=== PATIENT | male | born 1945 | race Caucasian/White ===

== ENCOUNTER → 2020-06-11 11:27 | Outpatient (CLI) | payer MEDICARE, MEDICAID, SELFPAY ==
[2020-06-11 13:08] LABS: Coronavirus 19 IgG Antibody Positive (Negative); Coronavirus 19 IgM Antibody Negative (Negative)
== END ==
PROVIDERS: Visit Provider Urology
DX: R32 Unspecified urinary incontinence (principal); Z01.818 Encounter for other preprocedural examination; Z11.52 Encounter for screening for COVID-19
CPT/HCPCS: 36415; 86328

== ENCOUNTER 2020-06-14 10:24 | Day surgery (SDC) | payer MEDICARE, MEDICAID, SELFPAY ==
[2020-06-10 13:51] VITALS: BMI 31.4
[2020-06-14 10:41] VITALS: BP 159/85; PULSE 104; RESP 16; TEMP 36.4; O2SAT 95
[2020-06-14 10:49] LABS: POC Glucose,Bedside 138 (70-110)
[2020-06-14 11:18] VITALS: BP 124/77; PULSE 101; RESP 16; TEMP 36.8; O2SAT 95
--- NOTE | 2020-06-14 13:04 | P.OP_ITS ---
Date of procedure: 06/14/20 Pre-op Diagnosis:: Urinary incontinence Post-op Diagnosis:: Stress urinary incontinence Procedure performed:: Cystourethroscopy Surgeon:: Elmer Zavala MD Anesthesia: local Estimated blood loss (mL): 0 Clinical Note:: Patient is a 74-year-old white male with a history of BPH status post 3 TURPs in the past. His last TURP was a laser TURP by Dr. Hayes in [place] on May 09, 2019. Patient states since that time his urinary leakage has been much worse. He does state mild amount of leakage prior to that procedure but now he is requiring pad use and goes through 5-6 pads per day. He states he leaks mainly with activity and bending over. Does have some urgency at night but can get to the bathroom. Operative findings:: Bladder was within normal limits. There is no evidence of trabeculation, cellules or diverticula. The ureteral orifices in their normal anatomic position. Prostatic urethra showed a nice TUR defect. The external urethral sphincter appears competent without any obvious injury. Operative note:: Patient taken to the operating suite after informed consent was pain. On the stretcher he was prepped and draped in the standard surgical fashion and 2% lidocaine placed into the urethra. Urethra was clamped for 5 minutes and then the clamp removed and the flexible cystoscope introduced into the urethral meatus. The scope passed to the prostatic urethra which showed a well resected prostate. The external urethral sphincter appears competent without evidence of injury. The bladder was entered and examined in a systematic fashion. There is no evidence of mucosal abnormalities, stones, diverticula or trabeculation. The ureteral orifices in their normal anatomic position with clear efflux of urine. Scope then removed. Patient tolerated procedure well. While lying down there is no evidence of any leakage but when the patient raised his head up there was copious leakage from the urethral meatus. He was then asked to void and voided with a good stream. We discussed the findings and symptoms are consistent with stress urinary incontinence. We discussed conservative measures with pseudoephedrine and Kegel exercises. We will see him back in a month. We also discussed surgical measures including artificial urinary sphincter. Condition: stable Disposition: same day Specimens:: None Complications:: None
== END 2020-06-14 11:34 | disposition home or self-care (01) ==
LOC: OUTP 10:26
PROVIDERS: PCP Nurse Practitioner Family; Visit Provider Urology
PROC: (CPT 52000; principal; 2020-06-14 11:30)
DX: Z87.438 Personal history of other diseases of male genital organs (principal); Z86.018 Personal history of other benign neoplasm; E10.9 Type 1 diabetes mellitus without complications; K21.9 Gastro-esophageal reflux disease without esophagitis; E78.5 Hyperlipidemia, unspecified; I10 Essential (primary) hypertension; Z79.899 Other long term (current) drug therapy; Z79.84 Long term (current) use of oral hypoglycemic drugs; N39.3 Stress incontinence (female) (male)
CPT/HCPCS: 52000; 82962

== ENCOUNTER → 2020-08-14 09:47 | Outpatient (CLI) | payer MEDICARE, MEDICAID, SELFPAY | PROVIDERS: Visit Provider Internal Medicine Gastroenterology | DX: Z01.812 Encounter for preprocedural laboratory examination (principal); Z20.822 Contact with and (suspected) exposure to COVID-19; Z12.11 Encounter for screening for malignant neoplasm of colon | CPT/HCPCS: U0003 ==

== ENCOUNTER 2020-08-16 07:42 | Day surgery (SDC) | payer MEDICARE, MEDICAID, SELFPAY ==
[2020-08-16 08:08] VITALS: BP 166/97; PULSE 103; RESP 18; TEMP 36.5; O2SAT 93; BMI 63.8
--- NOTE | 2020-08-16 08:39 | HMH.ANESCL ---
[facility] Anesthesia Checklist - Patient Identification Patient Identification: Arm Band - Structural Data Admitted From: Home Planned Operative Procedure/s: Colonscopy Consent for Planned Operative Procedure(s) Verified: Yes - NPO Status Verified Time NPO: 00:00 - Airway Assessment C-Spine Mobility Assessed: Yes TMJ Mobility Assessed: Yes Dentition: Good Dentition - Neurological Assessment Level of Consciousness: Awake, Alert Hx Seizures: No Numbness or tingling in extremities: No - Anesthesia Plan Anesthesia Risk discussed: Yes Anesthesia Plan: Verified ASA Class: III Anesthesia Type: MAC [facility] History I have reviewed the patient's past medical history: Yes Medical History: Reports:: BPH, Diabetes Mellitus Type 2, Gastroesophageal Reflux Disease(GERD), Hyperlipidemia, Hypertension Denies:: Cancer, Diabetes Mellitus Type 1, Internal Pacemaker, MRSA, Seizures *Have you ever received a pneumonia vaccine?: Yes *Have you received a flu vaccine this season?: Yes Anesthesia experience/problems:: None Laterality Cases: Bilateral: Arthroscopy Knee Other Surgeries: Yes: No Previous Surgery, Colonoscopy. No: Pacemaker Amputation: No - *Social History Last grade of school completed: 7th or 8th Smoking Status: Never smoker Alcohol Intake: never Substance Use Type: denies use *Occupational Status:: retired Housing: house Household Members: significant other *Travel in the last 8 weeks: None Family Hx:: No significant family history
[2020-08-16 09:05] VITALS: O2SAT 97
--- NOTE | 2020-08-16 09:29 | HMH.PROC ---
[facility] Procedure Note Procedure Note:: Colonoscopy Procedure Report: Colonoscopy with cold biopsies and monopolar ablation/coagulation of internal hemorrhoids Endoscopist: Fabiano Mathew II, MD Referring physician: CB Robins Date of Procedure: August 16, 2020 Equipment: Olympus 190 variable stiffness pediatric colonoscope Sedation: MAC sedation Indication: Mr. Iglesias is a 74-year-old gentleman who is here for diagnostic colonoscopy. He recently had some bright red blood per rectum 2 weeks ago with bright red blood dripping into the commode. He has had some constipation. He also states that his hemorrhoids were flaring up at the time. His last colonoscopy was approximately 10 years ago. He reports no abdominal pain, weight loss or family history of colon cancer. Procedure: Prior to the procedure, a history and physical exam was performed, and patient's medications and allergies were reviewed. The risks, benefits and alternatives of the sedation and procedure were discussed with the patient. All questions were answered and informed consent was obtained. The patient was brought to the procedure room. Patient identification and proposed procedure were verified by the physician and the nurse. The patient was placed in a left lateral decubitus position and the scope was passed under direct vision. Throughout the procedure, the patient's blood pressure, pulse, and oxygen saturations were monitored continuously. The colonoscopy was accomplished without difficulty. The patient tolerated the procedure well. Findings: On digital rectal examination there was normal rectal tone. There were no external hemorrhoids. The prostate was moderately firm and asymmetric with increased firmness at the margin. The colonoscope was introduced through the anal canal to the rectum and advanced to the cecum. The ileocecal valve and appendiceal orifice were identified. The scope was advanced a short distance into the ileum which appeared grossly normal. The scope was then withdrawn into the colon. The cecum, ascending and transverse colon and mucosa were grossly normal. There were scattered diverticuli throughout the descending and sigmoid colon (LEFT colon). There was also evidence of diverticular associated colitis in the sigmoid colon with granular erythematous mucosa and loss of vascular pattern. Cold biopsies were obtained from the sigmoid colon. The rectum itself was normal. Upon retroflexion within the rectum there were grade 2 internal hemorrhoids. These hemorrhoids were ablated/coagulated using monopolar ablation to destruction above the pectinate line. The preparation was good throughout with [place] Preparation Score of 8 out of 9. The cecal time was 12 minutes. Impression: 1. Left-sided diverticulosis with evidence of sigmoid diverticular associated colitis 2. Grade 2 internal hemorrhoids status post monopolar ablation/coagulation 3. Prostate firm/asymmetric Plan: I will follow-up the biopsies. The patient will not likely require any further preventive colonoscopy. I am going to recommend a fiber bowel regimen. I will inquire about PSA testing with firm asymmetric prostate.
[2020-08-16 09:31] VITALS: BP 89/62; PULSE 90; RESP 12; TEMP 37.1; O2SAT 91
[2020-08-16 09:41] VITALS: BP 111/67; PULSE 91; RESP 12; O2SAT 93
[2020-08-16 09:51] VITALS: BP 113/71; PULSE 89; RESP 16; O2SAT 95
[2020-08-16 10:01] VITALS: BP 131/73; PULSE 88; RESP 16; TEMP 37.1; O2SAT 94
--- NOTE | 2020-08-16 10:01 | PC.NURSE ---
PSA drawn per lab
[2020-08-16 10:42] LABS: POC Glucose,Bedside 155 (70-110)
== END 2020-08-16 10:14 | disposition home or self-care (01) ==
LOC: OUTP 07:45
PROVIDERS: PCP Nurse Practitioner Family; Visit Provider Internal Medicine Gastroenterology
PROC: 0DJD8ZZ Inspection of Lower Intestinal Tract, Via Natural or Artificial Opening Endoscopic (ICD-10-PCS; CPT 45378; principal; 2020-08-16 09:00)
DX: K57.30 Diverticulosis of large intestine without perforation or abscess without bleeding (principal); K52.89 Other specified noninfective gastroenteritis and colitis; K64.1 Second degree hemorrhoids; N42.89 Other specified disorders of prostate; E11.9 Type 2 diabetes mellitus without complications; N40.0 Benign prostatic hyperplasia without lower urinary tract symptoms; K21.9 Gastro-esophageal reflux disease without esophagitis; E78.5 Hyperlipidemia, unspecified; I10 Essential (primary) hypertension; Z79.899 Other long term (current) drug therapy
CPT/HCPCS: 45380; 46930; 36415; 82962; 84153; 88305

== ENCOUNTER → 2020-09-22 17:41 | Outpatient (CLI) | payer MEDICARE, MEDICAID, SELFPAY ==
[2020-09-22 18:39] LABS: Basophils # 0.1 K/mm3 (0-0.2); Basophils % 0.9 % (0.1-2.0); Eosinophils # 0.1 K/mm3 (0.0-0.4); Eosinophils % 1.3 % (0.1-12.0); Hematocrit 41.3 % (42.0-52.0); Hemoglobin 14.1 g/dL (14.1-18.0); Lymphocytes # 3.2 K/mm3 (0.7-4.5); Lymphocytes % 38.2 % (10-50); Mean Corpuscular HGB Conc 34.2 g/dL (31.8-35.4); Mean Corpuscular Hemoglobin 29.8 pg (27.0-31.2); Mean Corpuscular Volume 87.2 fl (80-94); Mean Platelet Volume 8.9 fl (7.4-10.4); Monocytes # 0.5 K/mm3 (0.1-1.0); Neutrophils # 4.4 K/mm3 (1.8-7.8); Neutrophils % 53.5 % (37.0-80.0); Platelet Count 280 K/mm3 (142-424); Red Blood Count 4.74 M/mm3 (4.60-6.20); Red Cell Distribution Width 12.9 % (11.5-17.5); White Blood Count 8.3 K/mm3 (4.8-10.8)
[2020-09-22 18:52] LABS: Chloride 93 mmol/L (98-107); Sodium 133 mmol/L (136-145)
[2020-09-22 18:55] LABS: Alanine Aminotransferase 18 U/L (12-78); Albumin Level 4.5 g/dl (3.5-5.0); Albumin/Globulin Ratio 1.9 (1.1-1.8); Alkaline Phosphatase 86 U/L (38-126); Aspartate Amino Transferase 26 U/L (17-59); Bilirubin,Total 0.5 mg/dl (0.2-1.3); Blood Urea Nitrogen 17 mg/dl (9-20); Calcium 9.6 mg/dl (8.4-10.2); Carbon Dioxide 28 mmol/L (22.0-30.0); Estimated Glomerular Filt Rate 73 ml/min (>60); GFR (African American) 88 ML/MIN (>60); Globulin 2.4 g/dL (1.3-3.2); Glucose 349 mg/dl (74-100); Total Protein,Serum 6.9 g/dl (6.3-8.2)
[2020-09-22 21:47] LABS: Hemoglobin A1C 8.8 % (4.0-6.0)
== END ==
PROVIDERS: Visit Provider Internal Medicine Adolescent Medicine
DX: E11.9 Type 2 diabetes mellitus without complications (principal); I10 Essential (primary) hypertension; Z79.84 Long term (current) use of oral hypoglycemic drugs
CPT/HCPCS: 80053; 83036; 85025

== ENCOUNTER → 2020-09-28 10:21 | Outpatient (POV) | payer MEDICARE, MEDICAID, SELFPAY | PROVIDERS: Visit Provider Dermatology | DX: Z00.00 Encounter for general adult medical examination without abnormal findings (principal) ==

== ENCOUNTER 2021-01-20 10:53 | Emergency (ER) | payer MEDICARE, MEDICAID, SELFPAY ==
--- NOTE | 2021-01-20 11:24 | XR_ITS ---
PROCEDURE: XR TIBIA FIBULA LT 2V CLINICAL INDICATION: pallet fell on leg COMPARISON: No exams were available for comparison FINDINGS: No fracture or dislocation. No lytic or blastic change. There is normal mineralization. Status post total knee replacement. Generalized vascular calcification. Other findings:None. IMPRESSION: No acute findings. Dictated by: Carlos Manuel Quinn MD 01/20/2021 12:27 Carlos Manuel Quinn MD in [facility] 01/20/2021 12:27
--- NOTE | 2021-01-20 11:24 | XR_ITS ---
PROCEDURE: XR KNEE LT 3V CLINICAL INDICATION: pallet fell on leg COMPARISON: No exams were available for comparison FINDINGS: Status post total knee replacement. There is good alignment of the prosthesis no obvious orthopedic complication. No fracture or dislocation. Arterial calcification is noted. IMPRESSION: Status post total knee replacement. No acute fracture. Dictated by: Carlos Manuel Quinn MD 01/20/2021 12:26 Carlos Manuel Quinn MD in [facility] 01/20/2021 12:26
[2021-01-20 11:59] VITALS: BP 169/88; PULSE 68; RESP 19; TEMP 37; O2SAT 95; BMI 31.3
[2021-01-20 12:36] VITALS: BP 169/88; PULSE 68; RESP 16; TEMP 37
--- NOTE | 2021-01-20 12:40 | HMH.EDUTC ---
[facility] [place] Disposition Clinical Impression: Need for Tdap vaccination Traumatic hematoma of left lower leg Qualifiers: Encounter type: initial encounter Qualified Code(s): S80.12XA - Contusion of left lower leg, initial encounter Blunt trauma of left lower leg Qualifiers: Encounter type: initial encounter Qualified Code(s): S89.92XA - Unspecified injury of left lower leg, initial encounter Disposition: Home, Self-Care Condition on Discharge: Good Instructions: DI for Hematoma (Bruise), DI for Crush Injury Additional Instructions: Rest the extremity, apply ice for 10 to 20 minutes as tolerated four times per day for the next 2 to 3 days, Elevate the extremity as much time as possible while you are resting. Wear the jorgito wrap loosely for compression, but make absolutely sure it doesn't get tight. You should take it off or rewrap it looser if your leg swells more and it becomes tight at all. Make sure you are doing the ice packs as directed. Anything that can be done to help reduce the swelling should be done. Take tylenol for pain. It would be the safest pain medication for this. If it is not controling your pain, you could take ibuprofen that I prescribed. I sent in a prescription to your pharmacy. If you have worsening pain you need to follow up for reevaluation chely. Follow up with Dr. Chen (orthopedics). I put in a referral but you need to call his office and schedule an appointment. Follow up with your regular doctor tomorrow or a soon as they can see you to recheck your wound. Usually these will begin to reabsorb, but if the swelling continues to worsen or other symptoms start you will need to be seen. The more closely you follow up with your primary care doctor the better. GO TO THE ER FOR ANY WORSENING SYMPTOMS I prescribed bactroban (mupirocin) ointment to help prevent the infection. Make sure you use it as presribed. Watch the site for signs of infection, such as worsening redness, worsening swelling and drainage. Follow up accordingly. Prescriptions: Ibuprofen [Ibuprofen 400mg Tablet] 400 mg PO Q6HP PRN #30 tab PRN Reason: Moderate Pain Transmission Status: Received by PASCALE GRAJEDA 207 Referrals: Provider,Referral, [Primary Care Provider] - Time of Disposition: 13:17 Medical Decision Making - Medical Records Medical records reviewed: No: I reviewed the patient's medical records. - Arian Inquiry Pt receiving controlled substance: No Vital Signs: 01/20/21 11:59 01/20/21 12:36 Temperature 98.6 F 98.6 F Temperature Source Oral Pulse Rate 68 Pulse Rate [Left] 68 Respiratory Rate 19 16 Blood Pressure 169/88 H Blood Pressure [Right Arm] 169/88 H Blood Pressure Mean [Right Arm] 115 02 Sat by Pulse Oximetry 95 - Radiology Data #1 Image(s): Tib/Fib Image Reviewed: Yes I reviewed the patient's radiology image, Yes I have reviewed radiologist's interpretation Preliminary Findings: No Fracture Seen PROCEDURE: XR TIBIA FIBULA LT 2V CLINICAL INDICATION: pallet fell on leg COMPARISON: No exams were available for comparison FINDINGS: No fracture or dislocation. No lytic or blastic change. There is normal mineralization. Status post total knee replacement. Generalized vascular calcification. Other findings:None. IMPRESSION: No acute findings. Dictated by: Carlos Manuel Quinn MD 01/20/2021 12:27 Carlos Manuel Quinn MD in [facility] 01/20/2021 12:27 #2 Image(s): Knee Image Reviewed: Yes I reviewed the patient's radiology image, Yes I have reviewed radiologist's interpretation Preliminary Findings: No Fracture Seen PROCEDURE: XR KNEE LT 3V CLINICAL INDICATION: pallet fell on leg COMPARISON: No exams were available for comparison FINDINGS: Status post total knee replacement. There is good alignment of the prosthesis no obvious orthopedic complication. No fracture or dislocation. Arterial calcification is noted. IMPRESSION: Statu
--- NOTE | 2021-01-20 12:56 | HMH.PHAINT ---
pulled adacel without the order in [facility]. lot [id number] exp 10-21-22 administered in R deltoid
== END 2021-01-20 13:22 | disposition home or self-care (01) ==
PROVIDERS: Emergency Provider Nurse Practitioner Family
DX: S80.12XA Contusion of left lower leg, initial encounter (principal); Z23 Encounter for immunization; W22.8XXA Striking against or struck by other objects, initial encounter; Y92.89 Other specified places as the place of occurrence of the external cause; E11.9 Type 2 diabetes mellitus without complications; K21.9 Gastro-esophageal reflux disease without esophagitis
CPT/HCPCS: G0463; 73562; 73590; 90471; 99202

== ENCOUNTER → 2021-01-28 10:32 | Outpatient (CLI) | payer MEDICARE, MEDICAID, SELFPAY ==
--- NOTE | 2021-01-28 10:51 | CA_ITS ---
APPROVED REPORT Left Lower Extremity Venous Study for DVT. Data Processing Manager: Sharon Navarro, RAMSEST Indications Lower Extremity Pain: Right PALLET FELL ON PT'S LEG 1 WEEK AGO, PT HAS A KNOT PROX GUILLEN Risk Factors Prior Phlebitis/DVT Past History DVT : Vein Imaging CFV (L): compressive, spontaneous, phasic, augmentation FEM (L): compressive, spontaneous, phasic, augmentation POP (L): compressive, spontaneous, phasic, augmentation PTV (L): Compressible GSV (L): Compressible Peroneals (L):Compressible GAS (L): Compressible Findings Study suggests no evidence of DVT or SVT of the left lower extremity. There is a 5.4 X 3.7 cm complex cystic lesion in area of patient's complaint, probable hematoma. Conclusion Study suggests no evidence of DVT or SVT of the left lower extremity. There is a 5.4 X 3.7 cm complex cystic lesion in area of patient's complaint, probable hematoma. Critical Notification Physician Notified Date: 01/28/2021 Time: 11:34 Physician Name: Chayo Haro Electronically signed by : Carlos Manuel Quinn MD 01/28/2021 15:37:36
--- NOTE | 2021-01-28 10:53 | XR_ITS ---
PROCEDURE: XR TIBIA FIBULA LT 2V CLINICAL INDICATION: LT LEG PAIN,LT LEG SWELLING,CELLULITIS COMPARISON: CR XR TIBIA FIBULA LT 2V from 01/20/2021 FINDINGS: Status post total knee arthroplasty with good alignment. No obvious orthopedic complication. Vascular calcification Other findings:No fracture or dislocation. No lytic or blastic change. IMPRESSION: No change with no acute finding Dictated by: Carlos Manuel Quinn MD 01/28/2021 11:18 Carlos Manuel Quinn MD in [facility] 01/28/2021 11:18
[2021-01-28 10:59] LABS: Basophils # 0.1 K/mm3 (0-0.2); Basophils % 1.1 % (0.1-2.0); Eosinophils # 0.2 K/mm3 (0.0-0.4); Eosinophils % 3.3 % (0.1-12.0); Hematocrit 40.8 % (42.0-52.0); Lymphocytes # 2.5 K/mm3 (0.7-4.5); Lymphocytes % 35.4 % (10-50); Mean Corpuscular HGB Conc 31.9 g/dL (31.8-35.4); Mean Corpuscular Hemoglobin 29.9 pg (27.0-31.2); Mean Corpuscular Volume 93.8 fl (80-94); Monocytes # 0.4 K/mm3 (0.1-1.0); Neutrophils # 3.8 K/mm3 (1.8-7.8); Neutrophils % 54.3 % (37.0-80.0); Platelet Count 305 K/mm3 (142-424); Red Blood Count 4.35 M/mm3 (4.60-6.20); Red Cell Distribution Width 13.3 % (11.5-17.5)
[2021-01-28 11:26] LABS: Erythrocyte Sedimentation Rate 5 mm/hr (0-20)
[2021-01-28 11:29] LABS: Chloride 100 mmol/L (98-107)
[2021-01-28 11:30] LABS: Potassium 4.2 mmoL/L (3.5-5.1); Sodium 138 mmol/L (136-145)
[2021-01-28 11:32] LABS: Alanine Aminotransferase 16 U/L (12-78); Alkaline Phosphatase 56 U/L (38-126); Aspartate Amino Transferase 24 U/L (17-59); Bilirubin,Total 0.2 mg/dl (0.2-1.3); Blood Urea Nitrogen 16 mg/dl (9-20); Estimated Glomerular Filt Rate 72 ml/min (>60); GFR (African American) 88 ML/MIN (>60)
[2021-01-28 11:33] LABS: Albumin Level 3.9 g/dl (3.5-5.0); Albumin/Globulin Ratio 1.6 (1.1-1.8); Anion Gap 13.2 mEq/L (5-15); Calcium 9.4 mg/dl (8.4-10.2); Carbon Dioxide 29 mmol/L (22.0-30.0); Globulin 2.4 g/dL (1.3-3.2); Glucose 152 mg/dl (74-100); Total Protein,Serum 6.3 g/dl (6.3-8.2)
[2021-01-28 11:38] LABS: C-Reactive Protein 1.5 mg/L (0-4)
== END ==
PROVIDERS: Visit Provider Nurse Practitioner Family
DX: M79.605 Pain in left leg (principal); M79.89 Other specified soft tissue disorders; L03.116 Cellulitis of left lower limb
CPT/HCPCS: 36415; 73590; 80053; 85025; 85651; 86140; 93971

== ENCOUNTER → 2021-03-28 17:47 | Outpatient (CLI) | payer MEDICARE, MEDICAID, SELFPAY ==
[2021-03-28 21:12] LABS: Hemoglobin A1C 6.6 % (4.0-6.0)
[2021-03-28 21:13] LABS: Alanine Aminotransferase 22 U/L (12-78); Albumin Level 4.2 g/dl (3.5-5.0); Albumin/Globulin Ratio 1.8 (1.1-1.8); Alkaline Phosphatase 64 U/L (38-126); Anion Gap 12.2 mEq/L (5-15); Aspartate Amino Transferase 30 U/L (17-59); Bilirubin,Total 0.2 mg/dl (0.2-1.3); Blood Urea Nitrogen 21 mg/dl (9-20); Calcium 9.9 mg/dl (8.4-10.2); Carbon Dioxide 30 mmol/L (22.0-30.0); Chloride 98 mmol/L (98-107); Estimated Glomerular Filt Rate 65 ml/min (>60); GFR (African American) 79 ML/MIN (>60); Globulin 2.4 g/dL (1.3-3.2); Glucose 210 mg/dl (74-100); Potassium 4.2 mmoL/L (3.5-5.1); Sodium 136 mmol/L (136-145); Total Protein,Serum 6.6 g/dl (6.3-8.2)
== END ==
PROVIDERS: Visit Provider Internal Medicine Adolescent Medicine
DX: E11.9 Type 2 diabetes mellitus without complications (principal); Z79.84 Long term (current) use of oral hypoglycemic drugs
CPT/HCPCS: 80053; 83036

== ENCOUNTER 2024-10-31 15:06 | Outpatient (CLI) | payer MEDICARE, MEDICAID, SELFPAY ==
--- OUTSIDE RECORDS SUMMARY | 2024-10-31 15:09 | XMS_ITS | Data Portability ---
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 PROCEDURE: Implantation of artificial urinary sphincter. SURGEON: Carie Maya Jr., MD ANESTHESIA: General. COMPLICATIONS: None. DISPOSITION: Patient was taken to recovery room in stable condition. OPERATIVE NOTE: Patient gives his full consent. He was brought in to the operating suite, where he was placed in supine position. He was sterilely prepped and draped in normal fashion with 10-minute scrub. Penile scrotal incision is created and we dissected down onto the bulbar urethra and corpora cavernosa. We used a [place] retractor for retraction purposes. We were able to establish access ventral to the bulbar urethra and created a space to pass our sphincter. We measured this area 4 cm. At this point, our sphincter was passed around the urethra without any difficulty and fastened into place. We then identified the external inguinal ring on the right side and created a space posterior to the pubic symphysis through the external inguinal ring for our reservoir. [place] was placed and 23 mL of injectable saline was placed into the reservoir. Finally, we created a subcutaneous pocket on the anterior scrotum for our pump. The pump was positioned appropriately and tubing was connected. Please note that throughout the procedure, a Gallardo catheter was then placed, 14-Serbian. Copious amounts of irrigation were used. The sphincter cycled normally and was deactivated with a good dimple in the pump. At this point, we closed dartos fascia using a 3-0 Vicryl suture and then closed skin using a combination of 3-0 chromic suture in a horizontal mattress running fashion and Dermabond. Sterile dressing was applied. Gallardo catheter was allowed to go to bag drainage, and the patient was taken to the recovery room in stable condition once anesthesia had been reversed. [email or web address] Not available 11/18/2020 02:14:05 Plan of Treatment Reminders Order Date Submit Date Provider Last Modified By Organization Details Last Modified Time Details Appointments None recorded. Lab urinalysis panel, auto 2021 022 [facility], [address] [facility], [facility] [address], [place], [address], 13:32:47 urinalysis panel, auto 2020 021 [facility], [address], [facility], [place], [address], 06:43:46 Referral None recorded. Procedures None recorded. Surgeries None recorded. Imaging None recorded. Medication Orders Myrbetriq 50 mg tablet,ext ended release 2021 [facility] [id number], [address] [place] [address], [address], 13:32:50 Percocet 7.5 mg-325 mg tablet 2020 021 [facility], [address] [place], [address], 16:58:15 Bactrim DS 800 mg-160 mg tablet 2020 021 [email or web address] [facility] [address], [address] [place], [address], 09:04:19 Patient TargetsNo targets recorded. Patient Instructions Encounter Date Encounter Id Patient Instructions Last Modified By Organization Details Last Modified Time 11/18/2020 [id number] patient will follow-up in 4-6 weeks with activation of the device tslabaudiego Not available 11/21/2020 12:45:34 12/30/2020 [id number] learning about healthy weight [email or web address] Not available 01/02/2021 17:57:24 patient understands the manipulation of the artificial urinary sphincter pump tslabaugh Not available 01/02/2021 17:57:02 01/05/2021 [id number] healthy together [email or web address] Not availabl e 01/10/2021 06:43:46 I spent some belia e demonstrating how to cycle the urinary sphincter. We cycled in the office if he had much more comfortable voiding. He states he has not been cycling properly demonstrated that he was able to cycle length today. [email or web address] Not available 01/10/2021 06:44:12 08/15/2021 [id number] healthy together tslabau Not availabl e 08/15/2021 13:32:47 Reason for Referral None Reported. Results Created Date Observation Date Name Description Value Unit Range Abnormal Flag Note LastModifiedBy Organization Detail LastModifiedTime 01/06/2001/05/2021 urina lysis panel , auto Unknown Analyte Clean Catch Not Available [facility] [address], [place], [address], 01/05/2021 09:34:07 01/06/2001/05/2021 urina lysis panel , auto Unknown Analyte Yellow Not Available Replaced by [facility] [place] [address], [place], [address], 01/05/2021 09:34:07 01/06/2001/05/2021 urina lysis panel , auto Unknown Analyte Clear Not Available Replaced by [facility] With [address], [place], [address], 01/05/2021 09:34:07 01/06/20 21 01/05/2021 urina lysis panel , auto Unknown Analyte 1.015 Not Available [facility] With [address], [place], [address], 01/05/2021 09:34:07 01/06/20 21 01/05/2021 urina lysis panel , auto Unknown Analyte 1.003- 1.035 Not Available [facility] With [address], [place], [address], 01/05/2021 09:34:07 01/06/20 21 01/05/2021 urina lysis panel , auto Unknown Analyte 7.0 Not Available [facility] With [address], [place], [address], 01/05/2021 09:34:07 01/06/20 21 01/05/2021 urina lysis panel , auto Unknown Analyte 5.0-8. 0 Not Available [facility] With [address], [place], [address], 01/05/2021 09:34:07 01/06/20 21 01/05/2021 urina lysis panel , auto Unknown Analyte Negati ve Not Available [facility] With [address], [place], [address], 01/05/2021 09:34:07 01/06/20 21 01/05/2021 urina lysis panel , auto Unknown Analyte Negati ve Not Available [facility] With [place] [address], [place], [address], 01/05/2021 09:34:07 01/06/20 21 01/05/2021 urina lysis panel , auto Unknown Analyte Negati ve Not Available [facility] With [address], [place], [address], 01/05/2021 09:34:07 01/06/20 21 01/05/2021 urina lysis panel , auto Unknown Analyte Negati ve Not Available [facility] With [address], [place], [address], 01/05/2021 09:34:07 01/06/20 21 01/05/2021 urina lysis panel , auto Unknown Analyte Negati ve Not Available [facility] With [address], [place], [address], 01/05/2021 09:34:07 01/06/20 21 01/05/2021 urina lysis panel , auto Unknown Analyte Negati ve Not Available [facility] With [address], [place], [address], 01/05/2021 09:34:07 01/06/20 21 01/05/2021 urina lysis panel , auto Unknown Analyte 100 mg/dl Not Available [facility] With [address], [place], [address], 01/05/2021 09:34:07 01/06/20 21 01/05/2021 urina lysis panel , auto Unknown Analyte Normal Not Available [facility] [place] [address], [place], [address], 01/05/2021 09:34:07 01/06/20 21 01/05/2021 urina lysis panel , auto Unknown Analyte Negati ve Not Available [facility] [place] [address], [place], [address], 01/05/2021 09:34:07 01/06/20 21 01/05/2021 urina lysis panel , auto Unknown Analyte Negati ve Not Available [facility] [address], [place], [address], 01/05/2021 09:34:07 01/06/20 21 01/05/2021 urina lysis panel , auto Unknown Analyte Normal Not Available [facility] [place] [address], [place], [address], 01/05/2021 09:34:07 01/06/20 21 01/05/2021 urina lysis panel , auto Unknown Analyte Normal 1 mg/dl Not Available [facility] With [address], [place], [address], 01/05/2021 09:34:07 01/06/20 21 01/05/2021 urina lysis panel , auto Unknown Analyte Negati ve Not Available [facility] With [address], [place], [address], 01/05/2021 09:34:07 01/06/20 21 01/05/2021 urina lysis panel , auto Unknown Analyte Negati ve Not Available [facility] With [address], [place], [address], 01/05/2021 09:34:07 01/06/20 21 01/05/2021 urina lysis panel , auto Unknown Analyte Negati ve Not Available [facility] [place] [address], [place], [address], 01/05/2021 09:34:07 01/06/20 21 01/05/2021 urina lysis panel , auto Unknown Analyte Negati ve Not Available [facility] [place] [address], [place], [address], 01/05/2021 09:34:07 11/16/19 21 11/16/2020 SARS- COV-2 RNA, PCR sars cov2 result NEGATI VE normal Not Available [facility] [address] [place] [address], [address], 11/16/2020 07:50:40 11/18/1911/17/2020 urina lysis panel , auto Unknown Analyte Clean Catch Not Available [facility] Surgery Schedule [address] [place] [address], [address], 11/17/2020 16:27:07 11/18/1911/17/2020 urina lysis panel , auto Unknown Analyte Yellow Not Available [facility] Surgery Schedule [address] [place] [address], [address], 11/17/2020 16:27:07 11/18/19 21 11/17/2020 urina lysis panel , auto Unknown Analyte Clear Not Available [facility] Surgery Schedule [address] [place] [address], [address], 11/17/2020 16:27:07 11/18/19 21 11/17/2020 urina lysis panel , auto Unknown Analyte 1.010 Not Available [facility] Surgery Schedule [address] [place] [address], [address], 11/17/2020 16:27:07 11/18/19 21 11/17/2020 urina lysis panel , auto Unknown Analyte 1.003- 1.035 Not Available [facility] Schedule [address] [place], [address], 11/17/2020 16:27:07 11/18/19 21 11/17/2020 urina lysis panel , auto Unknown Analyte 8.0 Not Available [facility] Surgery Schedule [address] [place], [address], 11/17/2020 16:27:07 11/18/19 21 11/17/2020 urina lysis panel , auto Unknown Analyte 5.0-8. 0 Not Available [facility] Schedule [address] [place], [address], 11/17/2020 16:27:07 11/18/19 21 11/17/2020 urina lysis panel , auto Unknown Analyte Negati ve Not Available [facility] Surgery Schedule [address] [place], [address], 11/17/2020 16:27:07 11/18/19 21 11/17/2020 urina lysis panel , auto Unknown Analyte Negati ve Not Available [facility] Surgery Schedule [address] [place], [address], 11/17/2020 16:27:07 11/18/19 21 11/17/2020 urina lysis panel , auto Unknown Analyte Negati ve Not Available [facility] Surgery Schedule [facility] [place], [address], 11/17/2020 16:27:07 11/18/19 21 11/17/2020 urina lysis panel , auto Unknown Analyte Negati ve Not Available [facility] Surgery Schedule [facility] [place], [address], 11/17/2020 16:27:07 11/18/19 21 11/17/2020 urina lysis panel , auto Unknown Analyte Negati ve Not Available [facility] Surgery Schedule [address] [place], [address], 11/17/2020 16:27:07 11/18/19 21 11/17/2020 urina lysis panel , auto Unknown Analyte Negati ve Not Available [facility] Surgery Schedule [address] [place], [address], 11/17/2020 16:27:07 11/18/19 21 11/17/2020 urina lysis panel , auto Unknown Analyte Normal Not Available [facility] Surgery Schedule [address] [place], [address], 11/17/2020 16:27:07 11/18/19 21 11/17/2020 urina lysis panel , auto Unknown Analyte Normal Not Available [facility] Surgery Schedule [address] [place], [address], 11/17/2020 16:27:07 11/18/19 21 11/17/2020 urina lysis panel , auto Unknown Analyte Negati ve Not Available [facility] Surgery Schedule [address] [place], [address], 11/17/2020 16:27:07 11/18/19 21 11/17/2020 urina lysis panel , auto Unknown Analyte Negati ve Not Available [facility] Surgery Schedule [address] [place], [address], 11/17/2020 16:27:07 11/18/19 21 11/17/2020 urina lysis panel , auto Unknown Analyte Normal Not Available [facility] Surgery Schedule [address] [place], [address], 11/17/2020 16:27:07 11/18/19 21 11/17/2020 urina lysis panel , auto Unknown Analyte Normal 1 mg/dl Not Available [facility] Surgery Schedule [address] [place], [address], 11/17/2020 16:27:07 11/18/19 21 11/17/2020 urina lysis panel , auto Unknown Analyte Negati ve Not Available [facility] Surgery Schedule [address] [place], [address], 11/17/2020 16:27:07 11/18/19 21 11/17/2020 urina lysis panel , auto Unknown Analyte Negati ve Not Available [facility] Surgery Schedule [address] [place], [address], 11/17/2020 16:27:07 11/18/19 21 11/17/2020 urina lysis panel , auto Unknown Analyte Negati ve Not Available [facility] Surgery Schedule [address] [place], [address], 11/17/2020 16:27:07 11/18/19 21 11/17/2020 urina lysis panel , auto Unknown Analyte Negati ve Not Available [facility] Surgery Schedule [address] [place], [address], 11/17/2020 16:27:07 08/16/19 22 08/15/2021 urina lysis panel , auto Unknown Analyte Clean Catch Not Available [facility] [address], [place], [address], 08/15/2021 13:18:59 08/16/19 22 08/15/2021 urina lysis panel , auto Unknown Analyte Yellow Not Available Replaced by [facility] [address], [place], [address], 08/15/2021 13:18:59 08/16/19 22 08/15/2021 urina lysis panel , auto Unknown Analyte Clear Not Available [facility] With [facility] [address], [place], [address], 08/15/2021 13:18:59 08/16/19 22 08/15/2021 urina lysis panel , auto Unknown Analyte 1.020 Not Available [facility] [address], [place], [address], 08/15/2021 13:18:59 08/16/19 22 08/15/2021 urina lysis panel , auto Unknown Analyte 1.003- 1.035 Not Available [facility] [address], [place], [address], 08/15/2021 13:18:59 08/16/19 22 08/15/2021 urina lysis panel , auto Unknown Analyte 5.0 Not Available Replaced by [facility] [address], [place], [address], 08/15/2021 13:18:59 08/16/19 22 08/15/2021 urina lysis panel , auto Unknown Analyte 5.0-8. 0 Not Available [facility] [address], [place], [address], 08/15/2021 13:18:59 08/16/19 22 08/15/2021 urina lysis panel , auto Unknown Analyte Negati ve Not Available [facility] [address], [place], [address], 08/15/2021 13:18:59 08/16/19 22 08/15/2021 urina lysis panel , auto Unknown Analyte Negati ve Not Available [facility] [address], [place], [address], 08/15/2021 13:18:59 08/16/19 22 08/15/2021 urina lysis panel , auto Unknown Analyte Negati ve Not Available [facility] [address], [place], [address], 08/15/2021 13:18:59 08/16/19 22 08/15/2021 urina lysis panel , auto Unknown Analyte Negati ve Not Available [facility] [address], [place], [address], 08/15/2021 13:18:59 08/16/19 22 08/15/2021 urina lysis panel , auto Unknown Analyte Negati ve Not Available [facility] [address], [place], [address], 08/15/2021 13:18:59 08/16/19 22 08/15/2021 urina lysis panel , auto Unknown Analyte Negati ve Not Available [facility] [address], [place], [address], 08/15/2021 13:18:59 08/16/19 22 08/15/2021 urina lysis panel , auto Unknown Analyte Normal Not Available [facility] [address], [place], [address], 08/15/2021 13:18:59 08/16/19 22 08/15/2021 urina lysis panel , auto Unknown Analyte Normal Not Available [facility] [address], [place], [address], 08/15/2021 13:18:59 08/16/19 22 08/15/2021 urina lysis panel , auto Unknown Analyte Negati ve Not Available [facility] [address], [place], [address], 08/15/2021 13:18:59 08/16/19 22 08/15/2021 urina lysis panel , auto Unknown Analyte Negati ve Not Available [facility] [address], [place], [address], 08/15/2021 13:18:59 08/16/19 22 08/15/2021 urina lysis panel , auto Unknown Analyte Normal Not Available [facility] [address], [place], [address], 08/15/2021 13:18:59 08/16/19 22 08/15/2021 urina lysis panel , auto Unknown Analyte Normal 1 mg/dl Not Available [facility] [address], [place], [address], 08/15/2021 13:18:59 08/16/19 22 08/15/2021 urina lysis panel , auto Unknown Analyte Negati ve Not Available [facility] [address], [place], [address], 08/15/2021 13:18:59 08/16/19 22 08/15/2021 urina lysis panel , auto Unknown Analyte Negati ve Not Available [facility] [address], [place], [address], 08/15/2021 13:18:59 08/16/19 22 08/15/2021 urina lysis panel , auto Unknown Analyte Negati ve Not Available [facility] [address], [place], [address], 08/15/2021 13:18:59 08/16/19 22 08/15/2021 urina lysis panel , auto Unknown Analyte Negati ve Not Available [facility] [address], [place], [address], 08/15/2021 13:18:59 Result Notes None recorded. Problems Name Problem SNOMED Code Status Onset Date Resolution Date Notes Provider Name and Address Organization Details Recorded Time Increased frequency of urination 484086498 Active 2017 [facility] 13:21:05 Prostate nodule 8275823111256 09 Active 2020 [place] [address] [place] [address], [address], [facility] 15:49:37 Male urinary stress incontinenc e 547726161 Active 2020 CARIE MAYA JR, MD [address] [place] [address], [address], [facility] 15:49:37 Benign prostatic hyperplasia with outflow obstruction 717542491 Active 2020 CARIE MAYA JR, MD [address] [place] [address], [address], [facility] 15:49:40 Primary erectile dysfunction 152867002 Active 2020 CARIE MAYA JR, MD [address] [place] [address], [address], [facility] 09:05:33 Problem Notes None recorded. Procedures Surgical History Date Name Laterality Status Provider Name and Address Organization Details Recorded Time 10/19/19 21 Urodynamics Interpretation completed CARIE MAYA JR, MD [address] [place] [address], [address], [facility] 10/25/2020 07:50:26 10/19/19 21 Urodynamics completed Shanta Hernandez [facility] 10/18/2020 10:55:02 10/09/19 21 Cystoscopy - [place] [address] [place] [address], [address], [facility] 10/08/2020 13:25:12 07/10/19 20 Uroflowmetry; Complex completed Deanne Bermudez [facility] 07/10/2019 16:02:53 07/10/19 20 Urodynamics Interpretation completed SHANE SOLIZ MD [address] [place], [address], [facility] 07/14/2019 12:32:03 07/10/19 20 Urodynamics completed Deanne Bermudez [facility] 07/10/2019 16:09:34 06/12/19 20 Post Void Residual; Catheter completed SHANE SOLIZ MD [address] [place], [address], [facility] 06/22/2019 22:28:47 04/09/19 20 Unlisted px ant segment eye completed Ana Maria Dennist [facility] 09/20/2020 14:18:35 02/22/20 18 CYSTOURETHROSCOPY , WITH CALIBRATION AND/OR DILATION OF URETHRAL STRICTURE OR STENOSIS (SURG) completed Jodee Delgado [facility] 03/15/2018 12:41:31 02/08/20 18 Post Void Residual; Ultrasound completed Shanta Hernandez [facility] 02/07/2018 16:38:57 Prostate Surgery completed Aida Rubio [facility] 02/07/2018 16:29:41 Imaging Results None recorded. Procedure Notes None recorded. Medical Equipment None Reported. Allergies No known drug allergies Medications Name Sig Start Date Stop Date Status Note LastModified by Organization Details LastModified Time Prescription - Prior Authorizatio n Request active Not Available Not Available No t Available Percocet 7.5 mg-325 mg tablet Take 1 tablet every 6 hours by oral route as needed. 2020 active Not Available Not Available Not Avai lable oxybutynin chloride ER 10 mg tablet,exten ded release 24 hr Take 1 tablet every day by oral route for 30 days. 03/27 completed Not Available Not Available Not Available tamsulosin 0.4 mg capsule Take 1 capsule every day by oral route. 09/20 completed Not Available Not Available Not Available doxycycline monohydrate 100 mg capsule Take 1 capsule twice a day by oral route. 2020 active Not Available Not Available Not Avai lable pantoprazole 40 mg tablet,delay ed release Take 1 tablet every day by oral route. active Not Available Not Available No t Available Cipro 500 mg tablet Take 1 tablet twice a day by oral route. 07/02 completed Not Available Not Available Not Available metoprolol succinate ER 25 mg tablet,exten ded release 24 hr Take 0.5 tablets every day by oral route. active Not Available Not Available No t Available lovastatin 20 mg tablet Take 1 tablet every day by oral route. active Not Available Not Available No t Available oxybutynin chloride 5 mg tablet TAKE 1 TABLET BY MOUTH TWICE DAILY active Not Available Not Available No t Available imipramine 25 mg tablet active Not Available Not Available Not Available finasteride 5 mg tablet Take 1 tablet every day by oral route. 09/20 completed Not Available Not Available Not Available Bactrim DS 800 mg-160 mg tablet Take 1 tablet every 12 hours by oral route. 12/30 completed Not Available Not Available Not Available Cialis 5 mg tablet Take 1 tablet every day by oral route for 30 days. 09/20 completed Not Available Not Available Not Available trospium 20 mg tablet Take 1 tablet twice a day by oral route for 90 days. 09/20 completed Not Available Not Available Not Available solifenacin 10 mg tablet 09/20 completed Not Available Not Available Not Available fenofibrate 160 mg tablet Take 1 tablet every day by oral route. 09/20 completed Not Available Not Available Not Available sildenafil (pulmonary hypertension ) 20 mg tablet TAKE 1-4 TABLETS BY MOUTH NEEDED 2021 active Not Available Not Available Not Avai lable Toviaz 8 mg tablet,exten ded release Take 1 tablet every day by oral route. 09/20 completed Not Available Not Available Not Available levothyroxin e 25 mcg capsule Take 1 capsule every day by oral route. active Not Available Not Available No t Available Myrbetriq 50 mg tablet,exten ded release TAKE ONE TABLET BY MOUTH DAILY 2021 active Not Available Not Available Not Avai lable Linzess active Not Available Not Avail able Not Available Vitals Date Recorded Body height Body mass index (BMI) Body weight Provider Name and Address Organization Details Last Updated DateTime 08/15/2021 170.18 cm 29 kg/m2 72152.59 g Shanta Hernandez [facility] 08/15/2021 13:18:23 Date Recorded Body height Body mass index (BMI) Body weight Provider Name and Address Organization Details Last Updated DateTime 11/18/2020 170.18 cm 28.8 kg/m2 75285 g Stephany Alvarezhannah [facility] 11/18/2020 10:20:06 Date Recorded Body height Body mass index (BMI) Body weight Provider Name and Address Organization Details Last Updated DateTime 12/30/2020 170.18 cm 29 kg/m2 16256.59 g Tamra Melgarles [facility] 12/30/2020 09:04:13 Date Recorded Body height Body mass index (BMI) Body weight Provider Name and Address Organization Details Last Updated DateTime 01/05/2021 170.18 cm 29 kg/m2 61383.59 g Shanta Hernandez [facility] 01/05/2021 09:33:40 Social History Question Answer Notes LastModified by Organizat ion Details LastModified Time Tobacco Smoking Status [facility] 16:29:26 How Much Tobacco Do You Chew? None [email or web address] Information not available 03/27/2019 Marital Status [email or web address] Informatio n not available 02/07/2018 What Was The Date Of Your Most Recent Tobacco Screening? 08/15/2018 Information not available 05/27/2019 What Is Your Relationship Status? [email or web address] Information not available 12/30/2020 How Much Tobacco Do You Smoke? No [email or web address] Information not available 07/14/2019 Has Tobacco Cessation Counseling Been Provided? No [email or web address] Information not available 12/30/2020 Have You Recently Traveled Abroad? No [email or web address] Information not available 12/30/2020 Sex: Unknown Functional Status Question Answer Note LastModified by Organizat ion Details LastModified Time Do you use any illicit or recreational drugs? No [email or web address] Information not available 12/30/2020 Do you or have you ever used any other forms of tobacco or nicotine? No [email or web address] Information not available 12/30/2020 What is your level of alcohol consumption? None Information not available 02/07/2018 What is your occupation? retired Information not available 02/07/2018 Mental Status None recorded. Family History Relationship Description Onset Age of this Age Resolved Age Notes LastModified by Organization Details LastModified Time Daughter Diabetes mellitus [email or web address] Not available 2017 16:28:53 Sister Family history of malignant neoplasm [email or web address] Not available 2017 16:29:20 Medical History Condition Response Diabetes Y Thyroid Disorder Y High Cholesterol Y Hypertension Y Past Encounters Encounter ID Performer Location Encounter Start Date Encounter Closed Date Diagnosis/Indication Diagnosis SNOMED-CT Code Diagnosis ICD10 Code Diagnosis Note [id number] MU CONNOLLY MD [facility] [address] [place] [phone] 02/07/2018 14:55:33 02/07/2018 16:57:04 Nocturia 547256017 R35.1 Benign pro static hyperplasia with outflow obstruction 666403792 N40.1 [id number] SHANE SOLIZ MD SURGERY SCHEDULE [address] [place] [id number] 02/26/2018 11:43:05 02/26/2018 11:46:47 [id number] SHANE SOLIZ MD [facility] [address],[place] [address] 03/15/2018 12:59:11 03/15/2018 13:35:10 Urinary incontinence 784866895 R32 Urethral stricture 75079 002 N35.92 [id number] SHANE SOLIZ MD [facility] [address] [address] 06/20/2018 13:54:38 07/01/2018 09:25:33 Nocturia 789035094 R35.1 Urinary incontinence 165 557153 R32 [id number] SHANE SOLIZ MD [facility] [address] [address] 08/15/2018 14:18:09 08/28/2018 10:44:55 Benign prostatic hyperplasia with outflow obstruction 249598198 N40.1 Bladder mu scle dysfunction - overactive 929106775 N32.81 [id number] SHANE SOLIZ MD [facility] [address],[place] [address] 03/27/2019 14:21:48 03/31/2019 07:14:02 Benign prostatic hyperplasia with outflow obstruction 874651075 N40.1 [id number] SHANE SOLIZ MD SURGERY SCHEDULE [address] [place] [id number] 04/08/2019 08:24:40 04/08/2019 08:26:19 [id number] SHANE SOLIZ MD [facility] [address] [place] [address] 05/12/2019 13:09:11 05/12/2019 13:47:52 Benign prostatic hyperplasia with outflow obstruction 201208508 N40.1 [id number] SHANE SOLIZ MD [facility] [address] ,[place] [address] 05/15/2019 13:43:45 05/15/2019 14:12:30 Benign prostatic hyperplasia with outflow obstruction 472080070 N40.1 [id number] SHANE SOLIZ MD [facility] [address],[place] [address] 8 06/12/2019 13:27:34 06/12/2019 14:32:37 Urinary tract infectious disease 39468269 N39.0 Benign pro static hyperplasia with outflow obstruction 638014606 N40.1 Increased frequency of urination 321986857 R35.0 [id number] SHANE SOLIZ MD [facility] [address],[place] [address] 8 07/03/2019 13:16:15 07/03/2019 16:15:59 Benign prostatic hyperplasia with outflow obstruction 671702256 N40.1 Urinary incontinence 165 800785 R32 [id number] [facility] [address] [place], [place] [address] 07/10/2019 13:19:46 07/10/2019 14:08:03 Urinary incontinence 149031599 R32 [id number] SHANE SOLIZ MD [facility] [address] [place] [id number] 07/14/2019 13:29:02 07/14/2019 16:18:05 Urge incontinence of urine 31069679 N39.41 Benign pro static hyperplasia with outflow obstruction 111987535 N40.1 [id number] SHANE SOLIZ MD SURGERY SCHEDULE [address] [place] [address] 08/26/2019 12:56:40 08/26/2019 12:58:11 [id number] SHANE SOLIZ MD SURGERY SCHEDULE [address] [place] [address] 09/09/2019 12:18:13 09/09/2019 12:22:48 [id number] SHANE SOLIZ MD [facility] [address] [place] [address] 09/12/2019 09:29:15 09/12/2019 09:55:23 Urethral stricture 80467551 N35.92 Urinary incontinence 165 013492 R32 [id number] SHANE SOLIZ MD [facility] [address] [facility],[place] [address] 10/09/2019 13:20:54 10/13/2019 09:19:23 Urinary incontinence 336180502 R32 [id number] CARIE MAYA JR, MD [facility] [address] [facility],[place] [address] [place] [address] 09/20/2020 14:17:23 09/24/2020 16:14:13 Benign prostatic hyperplasia with outflow obstruction 029089885 N40.1 Increased frequency of urination 254315298 R35.0 Male urina ry stress incontinence 910203071 N39.3 Prostate nodule 48461679 01 13612 N40.2 [id number] CARIE MAYA JR, MD SURGERY SCHEDULE [address] [place], [place] [address] 10/08/2020 11:44:37 10/08/2020 11:45:03 Benign prostatic hyperplasia with outflow obstruction 787745233 N40.1 Male urina ry stress incontinence 115852348 N39.3 [id number] CARIE MAYA JR, MD [facility] [address] [place] [id number] 10/18/2020 09:54:35 10/18/2020 10:50:19 Male urinary stress incontinence 227235987 N39.3 [id number] CARIE MAYA JR, MD [facility] [address] [facility],[address] [place] [address] 10/29/2020 08:43:05 10/29/2020 09:30:13 Male urinary stress incontinence 979512149 N39.3 Benign pro static hyperplasia with outflow obstruction 149767106 N40.1 Primary er ectile dysfunction 861847970 N52.9 [id number] CARIE MAYA JR, MD SURGERY SCHEDULE [address] [place] [address] 11/17/2020 12:31:09 11/17/2020 12:32:49 Male urinary stress incontinence 744412093 N39.3 [id number] CARIE MAYA JR, MD [facility] [address] [facility],[address] [place] [address] 11/18/2020 09:46:21 11/18/2020 10:44:04 Benign prostatic hyperplasia with outflow obstruction 103884777 N40.1 Male urina ry stress incontinence 805824888 N39.3 Primary er ectile dysfunction 251811189 N52.9 [id number] CARIE MAYA JR, MD [facility] [address] [facility],[address] [place] [address] 12/30/2020 08:53:19 12/30/2020 09:11:08 Male urinary stress incontinence 493725038 N39.3 [id number] CARIE MAYA JR, MD [address] [place] [address] 01/05/2021 09:28:15 01/05/2021 09:58:26 Male urinary stress incontinence 728579620 N39.3 [id number] CARIE MAYA JR, MD [facility] [address] [facility] [address] [place] [address] 08/15/2021 13:04:33 08/22/2021 07:56:12 Benign prostatic hyperplasia with outflow obstruction 450017002 N40.1 Increased frequency of urination 030213273 R35.0 Male urina ry stress incontinence 115224992 N39.3 Health Concerns Section Related Observation LastModified by Organization Detai ls LastModified Time None Recorded Concern Status LastModified by Organization Details LastModified Time None Recorded Advance Directives Directive None Recorded Payers Insurance Date Sequence Insurance Name Policy Number Policy Cummings Covered Member ID Cummings Member ID Guarantor Name 08/10/2023 1 [place]MEDICARE REPLACEMENT HMO) [id number] Danial Armstrong Pursiful [id number] Danial Pursiful 08/10/2023 1 [place] Danial Armstrong Pursiful [id number] Danial Pursiful 08/10/2023 2 MEDICAID-[facility] - FFS/[place]ADITION [place] Danial Pursiful [id number] Danial Ruvalcabaiful Notes Date Note Type Note Provider Name and Address Organization Details Recorded Time 11/18/2020 text/html patient is in today for follow-up of urinary incontinence. He underwent placement of artificial urinary sphincter November 17, 2020. He is in today for removal Gallardo catheter. He did not have any problems overnight. Patient recently had colonoscopy and was found to have prostate nodule. PSA August 16, 2020 1.6. Patient denies hematuria. He denies dysuria. He does not have a personal history of prostate cancer. there is no family history of prostate cancer. Patient does report erectile dysfunction treated successfully with sildenafil. CARIE MAYA JR, MD [facility] [place], [address], [facility] 11/21/2020 12:45:55 12/30/2020 text/html patient is in today for follow-up of urinary incontinence. He underwent placement of artificial urinary sphincter November 17, 2020.Patient recently had colonoscopy and was found to have prostate nodule. PSA August 16, 2020 1.6. Patient denies hematuria. He denies dysuria. He does not have a personal history of prostate cancer. there is no family history of prostate cancer. Patient does report erectile dysfunction treated successfully with sildenafil. CARIE MAYA JR, MD [facility] [place], [address], [facility] 01/02/2021 17:57:27 01/05/2021 text/html patient is in today for follow-up of urinary incontinence. He underwent placement of artificial urinary sphincter November 17, 2020. patient has been cycling his artificial urinary sphincter however it has been somewhat tender with urination and he wonders if he is cycling properly. Patient recently had colonoscopy and was found to have prostate nodule. PSA August 16, 2020 1.6. Patient denies hematuria. He denies dysuria. He does not have a personal history of prostate cancer. there is no family history of prostate cancer. Patient does report erectile dysfunction treated successfully with sildenafil. CARIE MAYA JR, MD [address] [place] [address], [address], [facility] 01/10/2021 06:44:28 08/15/2021 text/html patient is in today for follow-up of urinary incontinence. He underwent placement of artificial urinary sphincter November 17, 2020. patient has a history of BPH which was treated with laser vaporization prostate causing urinary incontinence. PSA August 16, 2020 1.6. Patient denies hematuria. He denies dysuria. He does not have a personal history of prostate cancer. there is no family history of prostate cancer. Patient does report erectile dysfunction treated successfully with sildenafil. CARIE MAYA JR, MD [facility] [place], [address], [facility] 08/15/2021 13:33:12
--- OUTSIDE RECORDS SUMMARY | 2024-10-31 15:10 | XMS_ITS | Clinical Summary ---
Author Organization [facility] Address [address] [place] [address] Care Team Providers Care Mailroom Supervisor Name Role Phone José Manuel Pimentel MD Primary Care Provider [phone] Allergies No known active allergies Medications metoprolol tartrate (LOPRESSOR) 25 MG tablet Take 25 mg by mouth 2 (Two) Times a Day. Active meloxicam (MOBIC) 15 MG tablet Take 15 mg by mouth Daily. Active terazosin (HYTRIN) 1 MG capsule Take 1 mg by mouth Every Night. Active fenofibrate 160 MG tablet Take 160 mg by mouth Daily. Active lisinopril-hydr ochlorothiazide (PRINZIDE,ZESTO RETIC) 20-25 MG per tablet Take 1 tablet by mouth Daily. Active lovastatin (ALTOPREV) 20 MG 24 hr tablet Take 20 mg by mouth Every Night. Active lovastatin (MEVACOR) 20 MG tablet Take 20 mg by mouth Every Night. Active levothyroxine (SYNTHROID, LEVOTHROID) 25 MCG tablet Take 25 mcg by mouth Daily. Active finasteride (PROSCAR) 5 MG tablet Take 5 mg by mouth Daily. Active Mirabegron ER (MYRBETRIQ) 50 MG tablet sustained-relea se 24 hour 24 hr tablet Take 50 mg by mouth Daily. Active linaclotide (LINZESS) 145 MCG capsule capsule Take 145 mcg by mouth Every Morning Before Breakfast. Active HYDROcodone-jorgito taminophen (NORCO) 7.5-325 MG per tabletIndicatio ns:BPH with obstruction/low er urinary tract symptoms Take 1-2 tablets by mouth Every 4 (Four) Hours As Needed for Moderate Pain (Pain). 20 tablet 05/09/2019 Active Active Problems No known active problems Immunizations Immunization Administration Dates Next Due Fluzone High-Dose 65+YRS 01/11/2023,12/12/2017,0 12/26/2016 Hepatitis A 03/11/2018,08/08/2017 Social History Tobacco Use Types Packs/Day Years Used Date Smoking Tobacco: Never Smokeless Tobacco: Never Alcohol Use Standard Drinks/Week Comments Never 0 (1 standard drink = 0.6 oz pur e alcohol) AUDIT-C Answer Date Recorded Frequency of Alcohol Consumption Never 05/08/2019 Average Number of Drinks Not on file 020 Frequency of Binge Drinking Not on file 04/11 Abuse Screen Answer Date Recorded Unsafe at Home or Work/School Not on file Feels Threatened by Someone? Not on file 10/2022 Does Anyone Keep You from Co ntacting Others or Doint Things Outside the Home? Not on file 01/13/2023 Physical Sign of Abuse Present Not on file 1 Housing Stability Answer Date Recorded Current Living Arrangements Not on file 10/2022 Potentially Unsafe Housing Conditions Not on mykel e 01/13/2023 Family and Community Support Answer Олег e Recorded Help with Day-to-Day Activities Not on file 01/13/2023 Lonely or Isolated Not on file 01/13/2023 Employment Answer Date Recorded Do you want help finding or keeping work or a juan b? Not on file 01/13/2023 Disabilities Answer Date Recorded Concentrating, Remembering, or Making Decisions Difficulty Not on file 01/13/2023 Doing Errands Independently Difficulty Not on fi le 01/13/2023 Education Answer Date Recorded Help with school or training? Not on file Preferred Language Not on file 01/13/2023 Sex and Gender Information Value Date Recorded Sex Assigned at Not on file Legal Sex Male 9:33 AM EST Gender Identity Not on file Sexual Orientation Not on file Last Filed Vital Signs Vital Sign Reading Time Taken Comments Blood Pressure 146/75 05/09/2019 3:15 PM EST Pulse 57 05/09/2019 3:15 PM EST Temperature 36.2 C (97.2 F) 05/09/2019 2:39 PM EST Respiratory Rate 16 05/09/2019 3:15 PM EST Oxygen Saturation 98% 05/09/2019 3:15 PM EST Inhaled Oxygen Concentration - - Weight 83.5 kg (184 lb) 05/08/2019 7:57 PM EST Height 170.2 cm (5' 7 ) 05/08/2019 7:57 PM EST Body Mass Index 28.82 05/08/2019 7:57 PM EST Plan of Treatment Health Maintenance Due Date Last Done Comments ANNUAL PHYSICAL 1945 TDAP/TD VACCINES (1 - Tdap) 12/26/1962 Pneumococcal Vaccine 50+ (1 of 1 - PCV) 12/26/1993 RSV Vaccine - Adults (1 - 1- dose 75+ series) 12/26/2018 ZOSTER VACCINE (2 of 2) 05/22/2023 03/27/2023 COVID-19 Vaccine (6 - 2023-2 5 season) 2023 01/16/2023, 12/06/2021, 01/06/2021, Additional history exists INFLUENZA VACCINE 01/07/2025 01/11/2023, , 01/09/2019, Additional history exists Insurance MEDICARE A & B MEDICAID [place] [facility] MEDICARE ADVANTAGE Care Teams Mailroom Supervisor Relationship Specialty Start Date End Date José Manuel Pimentel MD [facility] [address] [facility] [address] [place] [address] PCP - General Adolescent Medicine 03/27/23
--- OUTSIDE RECORDS SUMMARY | 2024-10-31 15:10 | XMS_ITS | Encounter Summary ---
Author Organization Healthcare Address [address] [place] [address] Care Team Providers Care Supervisor Wood Room Name Role Phone Pcp, No Primary Care Provider Unavailabl e Reason for Referral * Consultation (Routine) - Closed Specialty Diagnoses / Procedures Referred By Elijah estevez Referred To Contact Hand Surgery Diagnoses Unilateral primary osteoarthritis of first carpometacarpal joint, right hand Andre Puente PA [address] [place] [address] Phone: tel: fax: [facility] [address] [place] [address] Phone: tel: fax: Referral ID Status Reason Start Date Expiration Date Visits Re quested Visits Authorized [id number] Closed 02/21/2022 08/23/2023 1 1 Encounter Details Date Type Department Care Team (Latest Contact Info) Description 02/21/2022 Community [facility] [address] [place] [address] Andre Puente PA [address] [place] [address] Unilateral primary osteoarthritis of first carpometacarpal joint, right hand (Primary Dx) Social History Tobacco Use Types Packs/Day Years Used Date Smoking Tobacco: Never Assessed Sex and Gender Information Value Date Recorded Sex Assigned at Not on file Legal Sex Male 7:42 PM EDT Gender Identity Not on file Sexual Orientation Not on file documented as of this encounter Plan of Treatment Scheduled Referrals Name Type Priority Associated Diagnoses Orde r Schedule Ambulatory referral to Orthopaedics Hand Outpatient Referral Routine Unilateral primary osteoarthritis of first carpometacarpal joint, right hand Expected: 02/21/2022 (Approximate), Expires: 08/22/2023 documented as of this encounter Visit Diagnoses Diagnosis Unilateral primary osteoarthritis of first carpometacarpal joint, right hand- Primary documented in this encounter Care Teams Supervisor Wood Room Relationship Specialty Start Date End Date Pcp, No [address] [place] [id number] PCP - General Family Medicine 03/20/22 documented as of this encounter
--- OUTSIDE RECORDS SUMMARY | 2024-10-31 15:10 | XMS_ITS | Clinical Summary ---
Author Organization Healthcare Address [address] [place] [address] Care Team Providers Care Pupil Personnel Worker Name Role Phone Pcp, No Primary Care Provider Unavailabl e Allergies No known active allergies Medications donepezil (Aricept) 10 MG tablet Take 10 mg by mouth every night. 05/10/19 23 Active cyanocobalamin (Vitamin B-12) 1000 MCG/ML injection INJECT 1 ML INTRAMUSCULARLY ONCE A WEEK 06/25/19 22 Active Azelastine HCl 137 MCG/SPRAY solution USE 2 SPRAY(S) IN EACH NOSTRIL TWICE DAILY 02/09/20 22 Active cyclobenzaprin e (Flexeril) 10 MG tablet TAKE 1 TABLET BY MOUTH EVERY 8 HOURS NEEDED FOR MUSCLE SPASM 03/14/20 22 Active fenofibrate (Triglide) 160 MG tablet Take 160 mg by mouth 1 (one) time each day. 05/18/19 23 Active famotidine (Pepcid) 40 MG tablet Take 40 mg by mouth every night. 04/25/19 23 Active glimepiride (Amaryl) 2 MG tablet Take 2 mg by mouth 1 (one) time each day. 01/20/20 22 Active Accu-Chek Virgie Plus test strip USE 1 STRIP TO CHECK GLUCOSE ONCE DAILY 05/14/19 23 Active hydrOXYzine HCl (Atarax) 10 MG tablet TAKE 1 TABLET BY MOUTH ONCE DAILY AT NIGHT FOR SLEEP 05/17/19 23 Active ibuprofen 800 MG tablet TAKE 1 TABLET BY MOUTH EVERY 8 HOURS NEEDED FOR PAIN OR FEVER 08/29/19 22 Active lisinopril 20 MG tablet Take 20 mg by mouth 2 (two) times a day. 05/17/19 23 Active linaCLOtide (Linzess) 145 MCG capsule Take 145 mcg by mouth. Active levothyroxine (Tirosint) 25 MCG capsule 1 capsule 1 (one) time each day. Active Accu-Chek Softclix Lancets lancets USE 1 LANCET TO CHECK GLUCOSE ONCE DAILY 10/20/19 22 Active imipramine (Tofranil) 25 MG tablet imipramine 25 mg tablet TAKE ONE TABLET BY MOUTH TWICE A DAY Active lovastatin (Mevacor) 20 MG tablet Take 20 mg by mouth every night. 05/17/19 23 Active Memantine HCl ER 7 MG capsule sustained-rele ase 24 hr Take 1 capsule by mouth 1 (one) time each day. 05/10/19 23 Active metFORMIN (Glucophage) 1000 MG tablet Take 1,000 mg by mouth 2 (two) times a day. 03/27/20 22 Active metoprolol succinate XL (Toprol-XL) 25 MG 24 hr tablet 1 (one) time each day. Active Myrbetriq 50 MG tablet 05/19/19 23 Active sildenafil (Revatio) 20 MG tablet sildenafil (pulmonary hypertension) 20 mg tablet TAKE 1-4 TABLETS BY MOUTH NEEDED Active pantoprazole (Protonix) 40 MG EC tablet TAKE 1 TABLET BY MOUTH ONCE DAILY NEEDED FOR GERD SYMPTOMS 06/30/19 22 Active traZODone (Desyrel) 50 MG tablet Take 50 mg by mouth every night. 04/24/19 23 Active terazosin (Hytrin) 1 MG capsule Take 1 mg by mouth 1 (one) time each day. Active Luer Lock Safety Syringes 23G X 1 3 ML misc USE 1 SYRINGE ONCE A WEEK INTRAMUSCULARLY FOR B12 INJECTIONS. 06/25/19 22 Active Active Problems Problem Noted Date Diagnosed Date Unilateral primary osteoarth ritis of first carpometacarpal joint, right hand 05/26/2022 Overview (05/26/2022): s/p [facility] joint trapeziectomy and suture suspension arthroplasty Right hand pain 04/27/2022 Social History Tobacco Use Types Packs/Day Years Used Date Smoking Tobacco: Never Smokeless Tobacco: Never Alcohol Use Standard Drinks/Week Comments Never 0 (1 standard drink = 0.6 oz pur e alcohol) PHQ-2 Answer Date Recorded Patient Health Questionnaire-2 Score 0 03/20/2022 PHQ-2A Answer Date Recorded Patient Health Questionnaire-2 Score 0 03/20/2022 Sex and Gender Information Value Date Recorded Sex Assigned at Not on file Legal Sex Male 7:42 PM EDT Gender Identity Not on file Sexual Orientation Not on file Last Filed Vital Signs Vital Sign Reading Time Taken Comments Blood Pressure 129/76 05/26/2022 9:04 AM EST Pulse 82 05/26/2022 9:04 AM EST Temperature 36.5 C (97.7 F) 05/26/2022 9:04 AM EST Respiratory Rate - - Oxygen Saturation 96% 05/26/2022 9:04 AM EST Inhaled Oxygen Concentration - - Weight 88.5 kg (195 lb) 05/26/2022 9:04 AM EST Height 170.2 cm (5' 7 ) 05/26/2022 9:04 AM EST Body Mass Index 30.54 05/26/2022 9:04 AM EST Plan of Treatment Health Maintenance Due Date Last Done Comments [facility]-Medicare Annual Wellness (AWV) 1945 [facility]-Infant/Child/Adol SDOH Screenings 1945 [facility]- SDOH Screenings 12/26/1961 [facility]-Adult SDOH Screenings 12/26/1961 [facility]-DTaP,Tdap,and Td Vaccines (1 - Tdap) 12/26/1962 [facility]-Pneumococcal Vaccine: 50+ Years (1 of 1 - PCV) 12/26/1993 [facility]-Zoster Vaccines (1 of 2) 12/26/1993 [facility]-RSV Vaccine: 60+ Years or (1 - 1-dose 75+ series) 12/26/2018 [facility]-Depression Screening 03/20/2023 03/20/2022 [id number] Vaccine (5 - season) 2023 12/06/2021, 01/06/2021, 06/03/2020, Additional history exists [facility]-Influenza Vaccine (#1) 2024 12/23/2019, [facility]-Hepatitis A Vaccines Aged Out 03/11/2018, 05/0 05/2017 No longer eligible based on patient's age to complete this topic [facility]-Obesity Intervention Completed 04/27/2022 HPV Vaccines Aged Out No longer eligi ble based on patient's age to complete this topic [facility]-HIB Vaccines Aged Out No longer e ligible based on patient's age to complete this topic [facility]-IPV Vaccines Aged Out No longer e ligible based on patient's age to complete this topic [facility]-Rotavirus Vaccines Aged Out No lo nger eligible based on patient's age to complete this topic Goals Goal Patient Goal Type Associated Problems Recent Progress Patient-Stated? Author Patient will verbalize understanding of orthotic wear , care and precautions. Occupational Therapy No Emma Hooper Insurance MEDICARE [place]ICAID-[place] Care Teams Pupil Personnel Worker Relationship Specialty Start Date End Date Pcp, Joslyn [address] [place] [address] PCP - General Family Medicine 03/20/22
[2024-10-31 15:18] LABS: Adenovirus F 40/41, stool Not Detected (NotDetected); Clostridium Difficile A/B, PCR Not Detected (NotDetected); Cyclospora Cayetanesis Not Detected (NotDetected); Plesimonas Shigalloides, PCR Not Detected (NotDetected); Salmonella, PCR Not Detected (NotDetected); Shiga-like toxin E coli Not Detected (NotDetected); Shigella Enterovasive E coli Not Detected (NotDetected); Vibrio, PCR Not Detected (NotDetected); Yersinia Entercolitica, PCR Not Detected (NotDetected)
--- OUTSIDE RECORDS SUMMARY | 2024-10-31 16:09 | XMS_ITS | CCD ---
Author Organization Unknown Care Team Providers Care Technical Recruiter Name Role Phone Unavailable Primary Care Provider Unavailabl e Unavailable Chronic Care Management Unavaila ble Summary Purpose DataExchange Insurance Providers Payer name Policy type / Coverage type Covered alliance party ID Effective Begin Date Effective End Date [facility] [id number] Unknown Unknown Family History Family History data not found Medication Administered No Medication Administered data Reason For Visit No Reason For Visit data Medical Equipment No Medical Equipment data Advance Directives No Advance Directive data
== END 2024-10-31 23:59 | disposition home or self-care (01) ==
LOC: LAB.DROPOF 15:07
PROVIDERS: PCP Nurse Practitioner Family; Visit Provider Nurse Practitioner Family
DX: R19.7 Diarrhea, unspecified (principal)
CPT/HCPCS: 87507